=== PATIENT | female | born 1960 | race Caucasian/White ===

== ENCOUNTER 2019-09-21 08:01 | Day surgery (SDC) | payer BC ==
[~2019-09-21] VITALS: Ht 180.3 cm; Wt 92.0 kg
[2019-09-21 08:45] VITALS: BP 134/74
[2019-09-21] MEDS ORDERED: MIDAZOLAM 1 MG/ML, 5ML ONE (08:52)
[2019-09-21] MEDS ORDERED: FENTANYL PF 100 MCG/2ML ONE (08:52)
[2019-09-21] MEDS ORDERED: BIVALIRUDIN 250 MG ONE (08:52)
[2019-09-21] MEDS ORDERED: TICAGRELOR 90 MG TABLET ONE (08:52)
[2019-09-21] MEDS ORDERED: VERAPAMIL 2.5 MG/ML, 2ML ONE (08:52)
[2019-09-21] MEDS ORDERED: HEPARIN 1,000 UNITS/ML, 10ML ONE (08:53)
[2019-09-21] MEDS ORDERED: LIDOCAINE-MPF 1%, 5ML ONE (08:53)
[2019-09-21] MEDS ORDERED: METO25TA91 PO (08:56)
[2019-09-21] MEDS ORDERED: ASPI-496 PO (08:57)
[2019-09-21] MEDS ORDERED: NITR100C6 PO (08:57)
[2019-09-21] MEDS ORDERED: UBID50TA3 PO (08:58)
[2019-09-21] MEDS ORDERED: ALPR0.257 SL (08:58)
[2019-09-21] MEDS ORDERED: ASCO10004 PO (08:59)
[2019-09-21] MEDS ORDERED: multivit (09:00)
[2019-09-21] MEDS ORDERED: CALC-451 PO (09:01)
[2019-09-21] MEDS ORDERED: CYAN1TAB22 PO (09:01)
[2019-09-21] MEDS ORDERED: MAGN400T36 PO (09:02)
[2019-09-21] MEDS ORDERED: DIPHENHYDRAMINE 50 MG/ML, 1ML ONE (09:38)
[2019-09-21] MEDS ORDERED: SODIUM CHLORIDE 0.9% 1,000 ML IV SCH ×2 (10:08→11:00)
== END 2019-09-21 12:24 | disposition home or self-care (01) ==
LOC: CACL 08:01
PROVIDERS: ATTEND Internal Medicine Cardiovascular Disease
DX: R07.9 Chest pain, unspecified (principal); I25.110 Atherosclerotic heart disease of native coronary artery with unstable angina pectoris; I49.3 Ventricular premature depolarization; I10 Essential (primary) hypertension; E11.9 Type 2 diabetes mellitus without complications; E78.5 Hyperlipidemia, unspecified; E03.9 Hypothyroidism, unspecified; F33.42 Major depressive disorder, recurrent, in full remission; K21.9 Gastro-esophageal reflux disease without esophagitis; Z79.82 Long term (current) use of aspirin; Z79.899 Other long term (current) drug therapy; Z79.890 Hormone replacement therapy; Z87.891 Personal history of nicotine dependence; Z88.0 Allergy status to penicillin; Z88.1 Allergy status to other antibiotic agents; Z90.710 Acquired absence of both cervix and uterus; Z90.79 Acquired absence of other genital organ(s); Z82.49 Family history of ischemic heart disease and other diseases of the circulatory system; Z82.61 Family history of arthritis; Z81.8 Family history of other mental and behavioral disorders
CPT/HCPCS: 93458; 99156; C1769; C1894; J1200; J1644; J2250; J3010; Q9967; J0583